=== PATIENT | female | born 1985 | race Caucasian/White ===

== ENCOUNTER 2019-07-03 22:28 | Observation (INO) ==
--- NOTE | 2019-07-03 22:57 | Discharge Summary ---
Date of Encounter: 07/03/19 Time of Encounter: 22:55 - Discharge Diagnosis (1) 30 weeks gestation of Priority: Primary Status: Acute Comments: Follow-up with Dr. Pa as scheduled Discharge home (2) Sciatic pain Priority: Secondary Status: Acute Comments: Attempted massage and hep release without relief of pain Advised to seek resident care aide and use tennis ball against a wall Qualifiers: Laterality: left Qualified Code(s): M54.32 - Sciatica, left side - Discharge Medications Prescriptions: No Action Caplet 1 tab PO DAILY Home Medications: Caplet 1 tab PO DAILY 07/03/19 [History] Allergies/Adverse Reactions: Allergy/AdvReac Type Severity Reaction Status Date / Time aspirin AdvReac Nausea Verified 07/03/19 22:37 Date of admission: 07/03/19 22:28 Discharging clinician: Veena San Anticipated date of discharge: 07/03/19 - Patient Status Disposition: Home, Self-Care Condition: Good Functional capacity at discharge: independent ambulation Overall status at discharge: patient is progressing back to baseline - Discharge Instructions Follow Up With: Sofiya Pa [Partnered Physician] - Additional Instructions: LABOR AND DELIVERY DISCHARGE INSTRUCTIONS Signs and Symptoms to be Reported to your Doctor Immediately: * Sudden gush, continuous or intermittent lead of fluid from vagina (note the time of gush and color of fluid) * Onset of bright red vaginal bleeding with or without pain (if you had a vaginal exam during this visit you may notice some dark red spotting. This is normal.) * Lower abdominal cramping or backache that is premenstrual-like feeling. * More than 6 contractions in one hour. * Burning during urination, having to urinate more frequently or pain in your mid-back. * A change in the baby's activity. This could be an increase or decrease in activity. * Severe headache which does not go away with tylenol. * Sudden swelling in the face, hands, arms and/or legs. * Upper abdominal pain - sometimes associated with heartburn or nausea and is not relieved by Maalox, Mylanta or Tums. * Dizziness or blurred vision or visual disturbances (seeing stars/lights). * Kick Counts One hour after a meal, lay down on one side in a quiet place. Count the number of marianne the baby moves during an hour. If less than 6 movements, notify your physician. Diet: *Force fluids - 8-10 tall glasses of fluid per day. May include popsicles and jello. *Limit caffeine - this includes chocolate, coffee, tea, any soft drink containing such as all tadeo, Den Yellow and Mountain Dew Follow up all schedule appointments - Diet and Activity Activity: increase activity as tolerated Diet: regular diet Hospital Course MANAGER CREDIT RISK Reason for admission: other Discharge diagnosis: other Hospital course: Patient presented from the emergency department status post workup for abdominal pain. Urinalysis in the emergency department was unremarkable for infection. She is also complaining of left sciatic nerve pain. We tried a hip release as well as some light massage without relief. I advised her to seek resident care aide and use a tennis ball to roll up abdominal wall. She was discharged home in stable condition with appropriate follow-up to see Dr. Pa on Friday Time Attestation: Total time spent providing and/or coordinating discharge services: Time Spent: Less than 30 minutes Exam - Constitutional General appearance IM: A&O X 3, pleasant, answers questions appropriately - Respiratory Respiratory exam: Present: CTAB - Uterine Tone: Firm - Neurological Exam Neurological exam: alert, oriented X3 - VTE Reasons for not Prescribing Prophylaxis: Treatment not Indicated - Low risk for VTE
[2019-07-03 23:51] LABS: Candida DNA Not Detected (Not Detect); Gardnerella DNA Not Detected (Not Detect); Trichomonas DNA Not Detected (Not Detect)
== END 2019-07-03 23:00 | disposition home or self-care (01) ==
LOC: 1NENULAB
PROVIDERS: ADMIT Advanced Practice Midwife; ATTEND Advanced Practice Midwife

== ENCOUNTER → 2019-07-16 15:45 | Observation (INO) ==
[2019-07-16 11:42] LABS: Bilirubin,Urine Negative (Negative); Blood,Urine Small (Negative); Color,Urine Yellow (Yellow); Glucose,Urine (UA) Normal (Normal); Ketones,Urine Negative (Negative); Leukocyte Esterase,Urine Negative (Negative); Nitrite,Urine Negative (Negative); Protein,Urine 100 mg/dL (Neg-Trace); Specific Gravity,Urine 1.015 (1.010-1.025)
[2019-07-16 11:48] LABS: Clarity,Urine Slightly Hazy (Clear)
[2019-07-16 11:55] LABS: Bacteria,Urine Moderate per hpf (None-Few); Hyaline Casts,Urine None Seen per lpf (None-Few); RBC,Urine 0-3 per hpf (0-3); Squamous Epithelial Cell,Urine Many per lpf (None-Few)
[2019-07-16 11:59] LABS: Amphetamine Screen,Urine Negative ng/mL (Cutoff=1000); Barbiturate Screen,Urine Negative ng/mL (Cutoff=200); Benzodiazepines Screen,Urine Negative ng/mL (Cutoff=200); Cannabinoid Screen,Urine Negative ng/mL (Cutoff = 50); Cocaine Screen,Urine Negative ng/mL (Cutoff= 300); Opiate Screen,Urine Negative ng/mL (Cutoff=300); Phencyclidine Screen,Urine Negative ng/mL (Cutoff=25)
[2019-07-16 13:57] LABS: Candida DNA Not Detected (Not Detect); Gardnerella DNA Not Detected (Not Detect); Trichomonas DNA Not Detected (Not Detect)
[~2019-07-16 15:45] MED LIST: Betamethasone Acet/SodPhos 30 MG/5 ML VIAL IM SCH; NIFEdipine 10 MG CAPSULE PO ONE
--- NOTE | 2019-07-16 15:48 | OB/GYN Progress Note ---
Date of Encounter: 07/16/19 Time of Encounter: 15:45 - Assessment and Plan (1) 34 weeks gestation of Current Visit: Yes Status: Acute Reactive NST Urine - concentrated Vaginosis panel negative - will treat for yeast due to it being present upon speculum exam BMZ first dose - patient to return tomorrow for second dose Discharge home with PTL precautions Follow up in office as scheduled and PRN POC per consult with Dr Berkowitz. (2) NST (non-stress test) reactive Current Visit: Yes Status: Acute Subjective - Subjective Principal diagnosis: contractions Interval history: Ms Browning is a 34 year old at 31 weeks and 6 days that presents to triage with c/o contractions that began this am and wetness on her perineum. 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 She states positive movement. She denies recent intercourse. She denies headaches, vision changes, epigastric pain, and vaginal bleeding. She states she does not drink water due to the metallic taste and only drinks tea. Antepartum ROS: loss of fluid, movement normal, contractions Objective - Vital Signs Vital Signs: Intake and Output 07/15/19 07/16/19 07/16/19 23:59 07:59 15:59 Other: Weight 94.2 kg Patient Weight 07/16/19 23:59 Weight 94.2 kg - Exam FHR: auscultation normal, category 1 FHR comments: 130 baseline with > 15 x 15 accels and no decels. Contractions every 2-4 minutes Auscultation: bilateral: normal Abdomen: Present: normal appearance, soft, gravid. Absent: tenderness Uterus: Present: normal. Absent: firm Cervical dilation: FT Cervix effacement: Thick station: High Comments: SSE - yeast-like discharge on vaginal worthy - Labs Labs: Abnormal lab results Urine Protein 100 mg/dL (Neg-Trace) H 07/16/19 11:25 Urine Blood Small (Negative) H 07/16/19 11:25 Urine Urobilinogen 4.0 mg/dL (Normal) H 07/16/19 11:25 Urine Microscopic WBC 5-15 per hpf (0-3) H 07/16/19 11:25 Ur Squamous Epith Cells Many per lpf (None-Few) H 07/16/19 11:25 Urine Bacteria Moderate per hpf (None-Few) H 07/16/19 11:25 Ur Culture Indicated? YES (NO) A 07/16/19 11:25
== END | disposition home or self-care (01) ==
LOC: 1NENULAB
PROVIDERS: ADMIT Advanced Practice Midwife; ATTEND Advanced Practice Midwife

== ENCOUNTER 2019-09-04 07:24 | Inpatient (IN) ==
[~2019-09-04 07:24] MED LIST changes: +*HR* Nalbuphine 10 MG/ML AMPUL IVP PRN; -Betamethasone Acet/SodPhos 30 MG/5 ML VIAL IM SCH; +Famotidine 20 MG/2 ML VIAL IVP PRN; +Lidocaine 1% 20 ML MDV INFILT PRN; +Metoclopramide 10 MG/2 ML VIAL IVP PRN; -NIFEdipine 10 MG CAPSULE PO ONE; +Naloxone 0.4 MG/ML INJ IVP PRN; +Ondansetron 4 MG/2 ML VIAL IVP PRN
[2019-09-04] MEDS ORDERED: miSOPROStol 25 MCG TABLET VG PRN (07:26)
[2019-09-04] MEDS ORDERED: Ringers Solution, Lactated 1,000 ML IVC SCH (07:30)
[2019-09-04 07:52] LABS: Basophils % 0.1 %; Eosinophils # 0.1 K/mcL (0.0-0.6); Eosinophils % 0.8 %; Hematocrit 38.8 % (35.3-44.9); Hemoglobin 12.9 g/dL (11.5-15.4); Lymphocytes # 2.3 K/mcL (0.6-4.6); Mean Corpuscular HGB Conc 33.2 g/dL (31.6-35.5); Mean Corpuscular Hemoglobin 30.6 pg (28.0-33.3); Mean Corpuscular Volume 92.2 fL (83.0-100.0); Mean Platelet Volume 10.3 fL (9.4-12.4); Monocytes # 0.8 K/mcL (0.0-1.3); Monocytes % 4.8 %; Neutrophils # 12.2 K/mcL (1.6-8.9); Platelet Count 342 K/mcL (140-400); Red Blood Count 4.21 M/mcL (3.82-4.97); Red Cell Distribution Width 13.9 % (11.5-14.5); Segmented Neutrophils % 78.3 %; White Blood Count 15.6 K/mcL (4.3-11.1)
[2019-09-04 08:06] LABS: Amphetamine Screen,Urine Negative ng/mL (Cutoff=1000); Barbiturate Screen,Urine Negative ng/mL (Cutoff=200); Benzodiazepines Screen,Urine Negative ng/mL (Cutoff=200); Cannabinoid Screen,Urine Negative ng/mL (Cutoff = 50); Cocaine Screen,Urine Negative ng/mL (Cutoff= 300); Opiate Screen,Urine Negative ng/mL (Cutoff=300); Phencyclidine Screen,Urine Negative ng/mL (Cutoff=25)
[2019-09-04] MEDS ORDERED: Oxytocin 20 units/ LR 1000 mL 20 UNIT/1,000 ML BAG IVC ONE (12:57)
[2019-09-04] MEDS ORDERED: Oxytocin 20 units/ LR 1000 mL 20 UNIT/1,000 ML BAG IVC SCH ×2 (15:00→21:10)
[2019-09-04] MEDS ORDERED: Benzocaine/Menthol 56 GM AEROSOL SPRAY TP PRN (21:10)
[2019-09-04] MEDS ORDERED: Lanolin 7 G OINT...G. TP PRN (21:10)
[2019-09-04] MEDS: Acetaminophen 325 MG TABLET PO PRN (21:37)
[2019-09-05] MEDS: Ibuprofen 600 MG TABLET PO PRN ×2 (00:18→08:43)
[2019-09-05] MEDS: Acetaminophen 325 MG TABLET PO PRN ×2 (04:17→10:48)
[2019-09-05 08:02] VITALS: BP 127/82
[2019-09-05] MEDS ORDERED: Prenatal Vit/FA 1 EACH TABLET PO SCH (09:00)
== END 2019-09-05 11:00 | disposition home or self-care (01) | DRG 560 ==
LOC: 1NENULAB → 1NENUOBS 09-05 01:00
PROVIDERS: ADMIT Obstetrics & Gynecology; ATTEND Obstetrics & Gynecology